=== PATIENT | male | born 1990 | race Caucasian/White ===

== ENCOUNTER 2018-06-17 07:12 | Emergency (ER) | payer MEDICAID, SELFPAY ==
[2018-06-17] VITALS (8 sets, daily range): BP systolic 139–147; BP diastolic 79–82; PULSE 72–109; RESP 4–24; TEMP 36.7; O2SAT 95–98
[2018-06-17] MEDS: Albuterol/Ipratropium 3 ML UPD VIAL UPD (07:20)
--- NOTE | 2018-06-17 07:21 | ED.GENADUL_ITS ---
Discharge Plan Disposition Patient Disposition: HOME Condition: Good Discharge Details Chief Complaint: RespSymp Clinical Impression: Asthma with acute exacerbation Primary Care Provider: Nolan Branch ED Provider: Alejandro Haney Home Meds and New Rx's Prescriptions: New albuterol sulfate [Ventolin HFA] 90 mcg/actuation Hfa Aerosol Inhaler 2 puff Inhalation Q4H PRN (Reason: Wheezing) Qty: 0 RF: 0 prednisone 20 mg tablet 40 mg PO DAILY Qty: 8 RF: 0 Discharge Instructions Instructions: Asthma (ED) Additional Instructions: Use the inhaler with spacer every 4-6 hours as needed for cough and wheezing. Prednisone every morning for the next 4 days. Follow-up with primary care next week for reevaluation. Return to ED if increasing shortness of breath, chest pain, high fevers. Referrals: Nolan Branch, [employer] [Primary Care Provider] - Medical Decision Making Given DuoNeb treatment which helped significantly. He will follow this with an albuterol. On repeat exam still has some wheezing but he is no longer is diminished. He is feeling much better in terms of breathing. Chest x-ray ordered. 60 of prednisone given orally. Plan on at least one more albuterol neb. Better after 2 treatments. Given his third and feels jittery but feels that breathing is back to baseline. Chest x-ray was obtained and is negative for infiltrate. Patient will be discharged home with albuterol MDI as well as prednisone burst. Follow-up with primary care next week. Return to the emerg ency department if he develops increasing difficulty breathing, chest pain, other concerns. HPI General Mode of arrival: ambulatory . Date/Time Provider Initiated Documentation: 06/17/18 07:19 . Limitations to Documentation: no limitations . Information obtained by: patient . HPI Narrative: Patient presents to ED with chest tightness and wheezing with difficulty breathing since last night. He does have a history of asthma. He also smokes. He has had URI symptoms for the last couple of days. He feels like he cannot take a deep breath because his chest is so tight. Does not know whether he is had fever or not. He did wake up in a sweat but has been having difficulty breathing all night. Finally came in this morning. Related Data Home Medications Medication Instructions Recorded Confirmed albuterol sulfate [Ventolin HFA] 2 puff INHALATION Q4H PRN #0 gm 06/17/18 prednisone 40 mg PO DAILY #8 tab 06/17/18 Previous Rx's Medication Instructions Recorded albuterol sulfate [Ventolin HFA] 2 puff INHALATION Q4H PRN #0 gm 06/17/18 prednisone 40 mg PO DAILY #8 tab 06/17/18 Allergies Allergy/AdvReac Type Severity Reaction Status Date / Time oak tree Allergy Mild Uncoded 06/17/18 07:43 Review of Systems Review of Systems As documented in HPI otherwise negative as below. Const: no fever, chills, weakness Resp: cough, SOB, wheeze; no pleuritic pain CV: chest tightness but no CP, diaphoresis, edema, syncope GI: no abdominal pain, nausea, vomiting, diarrhea Neuro: no headache, numbness, focal weakness, confusion PFSH Medical History Asthma (Chronic) Social History Smoking/Tobacco Use Status: Current every day Drug use: Daily Do you feel safe in your relationship?: Yes Exam Narrative Exam Narrative: Vitals: Normal Const: WDWN male in NAD. HEENT: NC/AT. Normal facial exam. Eyes: Normal conjunctiva and sclera. Neck: Supple. Trachea midline. Lungs: Mild respiratory difficulty but no retractions/accessory muscle use. Diffuse wheezing and decreased throughout. Cor: RRR without murmur/gallop. Good radial pulses. Neuro: A+O x 3. CN grossly in tact. Good strength and no focal deficit. Ext: No C/C/E. No deformity or tenderness. Skin: Warm and dry without rash.
[2018-06-17] MEDS: Albuterol 2.5 MG/3 ML INH SOLN VIAL UPD ×2 (07:25→08:10)
[2018-06-17] MEDS: predniSONE 20 MG TAB 60 MG PO (07:30)
--- NOTE | 2018-06-17 07:45 | DI.RAD_ITS ---
SYMPTOM/DIAGNOSIS: COUGH,WHEEZE PA AND LATERAL CHEST: Comparison is made with 12/12/10. The cardiac and mediastinal contours have a normal appearance. The lungs are well inflated and clear. No infiltrate, effusion or pneumothorax is seen. IMPRESSION: Negative chest xray.
--- NOTE | 2018-06-17 08:17 | DI.VRAD_ITS ---
EXAM: XR Chest, 2 Views EXAM DATE/TIME: 06/17/2018 7:46 AM CLINICAL HISTORY: 27 years old, male; Signs and symptoms; Cough and wheezing; Patient HX: Cough, wheeze TECHNIQUE: Imaging protocol: XR of the chest, 2 views. COMPARISON: No relevant prior studies available. FINDINGS: Lungs: Mild hyperinflation. No consolidative pneumonia or pulmonary edema. Pleural space: Unremarkable. No pleural effusion. No pneumothorax. Heart/Mediastinum: Unremarkable. No cardiomegaly. Bones/joints: Unremarkable. IMPRESSION: Mild hyperinflation. No acute process. Dictated and Authenticated by: Jamie Amaral MD. Ordering:KHRIS Allen MD
[2018-06-17] MEDS: Inhaler, Assist Device 1 EACH MC (08:45)
[2018-06-17] MEDS: Albuterol HFA 8 GM 60 PUFF INH IH (08:45)
== END 2018-06-17 08:51 | disposition home or self-care (01) ==
PROVIDERS: Emergency Provider Emergency Medicine; PCP Nurse Practitioner Family
DX: J45.901 Unspecified asthma with (acute) exacerbation (principal); F17.210 Nicotine dependence, cigarettes, uncomplicated
CPT/HCPCS: 94640; 99284; 71046; J7512; J7613; J7620

== ENCOUNTER 2018-06-18 18:54 | Emergency (ER) | payer MEDICAID, SELFPAY ==
[2018-06-18 19:00] VITALS: BP 134/88; PULSE 91; PULSE 96; TEMP 36.4; O2SAT 96; O2SAT 97
--- NOTE | 2018-06-18 19:10 | W.ED.GENAD ---
Discharge Plan Disposition Patient Disposition: HOME Condition: Improving Discharge Details Chief Complaint: SOB Clinical Impression: Asthma, Anxiety Primary Care Provider: Nolan Branch ED Provider: Lisa Rizo Home Meds and New Rx's Prescriptions: Continued albuterol sulfate [Ventolin HFA] 90 mcg/actuation Hfa Aerosol Inhaler 2 puff Inhalation Q4H PRN (Reason: Wheezing) Qty: 0 RF: 0 prednisone 20 mg tablet 40 mg PO DAILY Qty: 8 RF: 0 Discharge Instructions Instructions: Lorazepam (By mouth), Asthma (ED), Anxiety (ED) Additional Instructions: Encourage hydration. Use inhaler as previously prescribed. Use nasal saline, may continue with Mucinex. Ativan as prescribed to help with anxiety that can accompany your shortness of breath. If you develop increased work of breathing, inability to stay hydrated, fevers or other new/worsening symptoms please seek care urgently once again. communications coordinator will contact you with primary care information. Referrals: Nolan Branch NP [Primary Care Provider] - Medical Decision Making <RODRIGO Weir - Last Filed: 06/18/18 21:56> Patient is a 27-year-old male presenting chief complaint shortness of breath. He simply yesterday diagnosed with asthma exacerbation in the setting of URI. He reports that he had been doing better earlier today but that during a coughing fit this afternoon, he was unable to clear my chest. States that he laid on his stomach to try and slow his breathing. States that he was notably tachypneic. Reports that while laying down on the floor, quickly breathing, he suffered a syncopal event. Prior to this, he noted his face, hands and feet to be numb. Denies any chest pain. Reports that he continues to be short of breath. Has been using his inhaler as prescribed. Has been taking the prednisone as prescribed last night. Patient is noted to have diffuse expiratory wheezes on exam. Will give DuoNeb and reassess. Does appear quite anxious and tachypneic. Patient's oxygen is 97% Patient is much improved after 1 duoneb and 2 albuterol. Continues to need coaching to slow down his breathing. When at rest, he is breathing normally and evenly. However, he quickly becomes tachypnic with discussion and refocusing on his breathing. O2 remains in high 90s. Lungs clear to auscultation. Will obtain EKG with reported syncopal episode although this is likely associated with hyperventilation. EKG reviewed by Dr. Silva with no acute abnormality noted, NSR rate 84. Patient is feeling much improved but still appears anxious. Discussed case with Dr. Silva who advised benzo. Patient given 0.5mg Ativan orally. This helped patient be able to slow his breathing. He reports feeling opened up andappear much more calm. Plan to d/c home with previous plan in place. Will give one more 0.5mg ativan to be used PRN. Advised on safe usage and advised he keep this out of reach of children. Encouraged hydration. His symptoms do sound concerning for PND, advised on home remedies and OTC medications that may help with this and hopefully cut back on coughing. Discussed new/worsening symptoms and when to seek care urgently once again. He does not have a PCP, have asked health care facilities inspector to help arrange for this. I am hoping he will have f/u as soon as possible, he greatly benefited from PRN nebulizer. Ask that PCP help to arrange for home use. All ofhis questions and concerns were addressed, he is in agreement with this plan. <Mendoza Silva MD - Last Filed: 06/18/18 21:19> ECG Data Attestation: I personally reviewed and interpreted this ECG (s) as follows: Prior ECG tracings: available for review Interpretation: sinus rhythm, rate of 84, pr 120, no acute st t wave ischemic changes HPI <RODRIGO Weir - Last Filed: 06/18/18 21:56> General Mode of arrival: ambulatory. Date/Time Provider Initiated Documentation: 06/18/18 19:01. Limitations to Documentation: no limitations. Information obtained by: patient, family and RN notes reviewed. History of Present Illness 27 year old M presents to the emergency department with the chief complaint of SOB, described as moderate, Patient started experiencing this hour(s) and it has been constant. No relieving factors improve symptom(s), No exacerbating factors reported . Patient notes cough, fever/chills, shortness of breath and syncope; denies chest pain, diaphoresis, headaches, loss of appetite, nausea/vomiting, rash and weakness. Patient did receive the following treatments prior to arrival, other (inhaler) Related Data Home Medications Medication Instructions Recorded Confirmed albuterol sulfate [Ventolin HFA] 2 puff INHALATION Q4H PRN #0 gm 06/17/18 06/18/18 prednisone 40 mg PO DAILY #8 tab 06/17/18 06/18/18 Previous Rx's Medication Instructions Recorded albuterol sulfate [Ventolin HFA] 2 puff INHALATION Q4H PRN #0 gm 06/17/18 prednisone 40 mg PO DAILY #8 tab 06/17/18 Allergies Allergy/AdvReac Type Severity Reaction Status Date / Time feathers Allergy Unverified 06/18/18 19:04 oak tree Allergy Mild Uncoded 06/18/18 19:04 General Stated Complaint: SOB ALFIE: 3 Review of Systems <RODRIGO Weir Last Filed: 06/18/18 21:56> Constitutional Reports as per HPI and Denies headache(s) Eyes Reports as per HPI, Denies eye discharge and Denies irritation ENT Reports as per HPI and Denies headache(s) Cardiovascular Reports as per HPI, Denies chest pain and Denies dyspnea Respiratory Reports as per HPI and Denies dyspnea Gastrointestinal Reports as per HPI, Denies abdominal pain, Denies change in bowel habits, Denies nausea and Denies vomiting Integumentary/Breasts Reports as per HPI and Denies rash Neurologic Reports as per HPI and Denies headache(s) PFSH <RODRIGO Weir - Last Filed: 06/18/18 21:56> Social History Smoking/Tobacco Use Status: Current every day Tobacco Type: cigarettes Years smoked: 10 Drug use: Daily Substance use type: marijuana Do you feel safe at home: Yes Do you feel safe in your relationship?: Yes Exam <RODRIGO Weir - Last Filed: 06/18/18 21:56> Const General: cooperative, healthy appearing, comfortable, no acute distress, well developed and well groomed Nutritional Appearance: average body habitus and well nourished Orientation: alert and awake [facility] Head: normal to inspection, normocephalic and atraumatic Ears: hearing grossly normal bilaterally, external ears normal and TM's normal bilaterally General nose exam: external nose normal and nares normal Face and sinus: normal facial exam, sinuses nontender and face symmetric Mouth: oral mucosae normal, lip normal, tongue normal, oropharynx normal and moist mucous membranes Teeth and gingiva: dentition normal Throat: posterior oropharynx normal, tonsils normal and uvula midline Eyes General: appearance normal, both eyes and all related structures Neck Neck: normal visual inspection, full ROM, no lymphadenopathy and no meningeal signs Resp Effort & Inspection: normal respiratory effort, able to speak in complete sentences and no respiratory distress Auscultation: clear to auscultation bilaterally, no rales, no rhonchi and no wheezes Cardio Rate: regular rate Rhythm: regular rhythm Heart Sounds: S1 normal and S2 normal Skin General skin exam: no rashes or lesions noted Neuro General: alert and awake Cognition: normal cognition Speech: speech normal Gait: normal gait Psych Appearance: grossly normal and well kempt Mental Status: mental status grossly normal Speech and Movement: speech and movement normal Course <RODRIGO Weir - Last Filed: 06/18/18 21:56> Vital Signs Temperature 36.4 C L 06/18/18 19:00 Pulse 96 H 06/18/18 19:00 Pulse Oximetry 97 06/18/18 19:00 Temperature 36.4 C L 06/18/18 19:00 Temperature Source Skin 06/18/18 19:00 Pulse 96 H 06/18/18 19:00 Blood Pressure Position Sitting 06/18/18 19:00 Pulse Oximetry 97 06/18/18 19:00 Oxygen Delivery Method Room Air 06/18/18 19:00 Oxygen Flow Rate 0 06/18/18 19:00
[2018-06-18] MEDS: Albuterol/Ipratropium 3 ML UPD VIAL (19:12)
--- NOTE | 2018-06-18 19:13 | ED.GENADUL_ITS ---
Discharge Plan Disposition Patient Disposition: HOME Condition: Improving Discharge Details Chief Complaint: SOB Clinical Impression: Asthma, Anxiety Primary Care Provider: Nolan Branch ED Provider: Lisa Rizo Home Meds and New Rx's Prescriptions: Continued albuterol sulfate [Ventolin HFA] 90 mcg/actuation Hfa Aerosol Inhaler 2 puff Inhalation Q4H PRN (Reason: Wheezing) Qty: 0 RF: 0 prednisone 20 mg tablet 40 mg PO DAILY Qty: 8 RF: 0 Discharge Instructions Instructions: Lorazepam (By mouth), Asthma (ED), Anxiety (ED) Additional Instructions: Encourage hydration. Use inhaler as previously prescribed. Use nasal saline, may continue with Mucinex. Ativan as prescribed to help with anxiety that can accompany your shortness of breath. If you develop increased work of breathing, inability to stay hydrated, fevers or other new/worsening symptoms please seek care urgently once again. e learning coordinator will contact you with primary care information. Referrals: Nolan Branch NP [Primary Care Provider] - Medical Decision Making <RODRIGO Weir - Last Filed: 06/18/18 21:56> Patient is a 27-year-old male presenting chief complaint shortness of breath. He simply yesterday diagnosed with asthma exacerbation in the setting of URI. He reports that he had been doing better earlier today but that during a coughing fit this afternoon, he was unable to clear my chest. States that he laid on his stomach to try and slow his breathing. States that he was notably tachypneic. Reports that while laying down on the floor, quickly breathing, he suffered a syncopal event. Prior to this, he noted his face, hands and feet to be numb. Denies any chest pain. Reports that he continues to be short of breath. Has been using his inhaler as prescribed. Has been taking the prednisone as prescribed last night. Patient is noted to have diffuse expiratory wheezes on exam. Will give DuoNeb and reassess. Does appear quite anxious and tachypneic. Patient's oxygen is 97% Patient is much improved after 1 duoneb and 2 albuterol. Continues to need coaching to slow down his breathing. When at rest, he is breathing normally and evenly. However, he quickly becomes tachypnic with discussion and refocusing on his breathing. O2 remains in high 90s. Lungs clear to auscultation. Will obtain EKG with reported syncopal episode although this is likely associated with hyperventilation. EKG reviewed by Dr. Silva with no acute abnormality noted, NSR rate 84. Patient is feeling much improved but still appears anxious. Discussed case with Dr. Silva who advised benzo. Patient given 0.5mg Ativan orally. This helped patient be able to slow his breathing. He reports feeling opened up andappear much more calm. Plan to d/c home with previous plan in place. Will give one more 0.5mg ativan to be used PRN. Advised on safe usage and advised he keep this out of reach of children. Encouraged hydration. His symptoms do sound concerning for PND, advised on home remedies and OTC medications that may help with this and hopefully cut back on coughing. Discussed new/worsening symptoms and when to seek care urgently once again. He does not have a PCP, have asked hospice care consultant to help arrange for this. I am hoping he will have f/u as soon as possible, he greatly benefited from PRN nebulizer. Ask that PCP help to arrange for home use. All ofhis questions and concerns were addressed, he is in agreement with this plan. <Mendoza Silva MD - Last Filed: 06/18/18 21:19> ECG Data Attestation: I personally reviewed and interpreted this ECG (s) as follows: Prior ECG tracings: available for review Interpretation: sinus rhythm, rate of 84, pr 120, no acute st t wave ischemic changes HPI <RODRIGO Weir - Last Filed: 06/18/18 21:56> General Mode of arrival: ambulatory . Date/Time Provider Initiated Documentation: 06/18/18 19:01 . Limitations to Documentation: no limitations . Information obtained by: patient, family and RN notes reviewed . History of Present Illness 27 year old M presents to the emergency department with the chief complaint of SOB, described as moderate, Patient started experiencing this hour(s) and it has been constant. No relieving factors improve symptom(s), No exacerbating factors reported . Patient notes cough, fe kenya/chills, shortness of breath and syncope; denies chest pain, diaphoresis, headaches, loss of appetite, nausea/vomiting, rash and weakness. Patient did receive the following treatments prior to arrival, other (inhaler) Related Data Home Medications Medication Instructions Recorded Confirmed albuterol sulfate [Ventolin HFA] 2 puff INHALATION Q4H PRN #0 gm 06/17/18 06/18/18 prednisone 40 mg PO DAILY #8 tab 06/17/18 06/18/18 Previous Rx's Medication Instructions Recorded albuterol sulfate [Ventolin HFA] 2 puff INHALATION Q4H PRN #0 gm 06/17/18 prednisone 40 mg PO DAILY #8 tab 06/17/18 Allergies Allergy/AdvReac Type Severity Reaction Status Date / Time feathers Allergy Unverified 06/18/18 19:04 oak tree Allergy Mild Uncoded 06/18/18 19:04 General Stated Complaint: SOB ALFIE: 3 Review of Systems <RODRIGO Weir Last Filed: 06/18/18 21:56> Constitutional Reports as per HPI and Denies headache(s) Eyes Reports as per HPI, Denies eye discharge and Denies irritation ENT Reports as per HPI and Denies headache(s) Cardiovascular Reports as per HPI, Denies chest pain and Denies dyspnea Respiratory Reports as per HPI and Denies dyspnea Gastrointestinal Reports as per HPI, Denies abdominal pain, Denies change in bowel habits, Denies nausea and Denies vomiting Integumentary/Breasts Reports as per HPI and Denies rash Neurologic Reports as per HPI and Denies headache(s) PFSH <RODRIGO Weir Last Filed: 06/18/18 21:56> Social History Smoking/Tobacco Use Status: Current every day Tobacco Type: cigarettes Years smoked: 10 Drug use: Daily Substance use type: marijuana Do you feel safe at home: Yes Do you feel safe in your relationship?: Yes Exam <RODRIGO Weir Last Filed: 06/18/18 21:56> Const General: cooperative, healthy appearing, comfortable, no acute distress, well developed and well groomed Nutritional Appearance: average body habitus and well nourished Orientation: alert and awake [facility] Head: normal to inspection, normocephalic and atraumatic Ears: hearing grossly normal bilaterally, external ears normal and TM's normal bilaterally General nose exam: external nose normal and nares normal Face and sinus: normal facial exam, sinuses nontender and face symmetric Mouth: oral mucosae normal, lip normal, tongue normal, oropharynx normal and moist mucous membranes Teeth and gingiva: dentition normal Throat: posterior oropharynx normal, tonsils normal and uvula midline Eyes General: appearance normal, both eyes and all related structures Neck Neck: normal visual inspection, full ROM, no lymphadenopathy and no meningeal signs Resp Effort & Inspection: normal respiratory effort, able to speak in complete sentences and no respiratory distress Auscultation: clear to auscultation bilaterally, no rales, no rhonchi and no wheezes Cardio Rate: regular rate Rhythm: regular rhythm Heart Sounds: S1 normal and S2 normal Skin General skin exam: no rashes or lesions noted Neuro General: alert and awake Cognition: normal cognition Speech: speech normal Gait: normal gait Psych Appearance: grossly normal and well kempt Mental Status: mental status grossly normal Speech and Movement: speech and movement normal Course <RODRIGO Weir - Last Filed: 06/18/18 21:56> Vital Signs Temperature 36.4 C L 06/18/18 19:00 Pulse 96 H 06/18/18 19:00 Pulse Oximetry 97 06/18/18 19:00 Temperature 36.4 C L 06/18/18 19:00 Temperature Source Skin 06/18/18 19:00 Pulse 96 H 06/18/18 19:00 Blood Pressure Position Sitting 06/18/18 19:00 Pulse Oximetry 97 06/18/18 19:00 Oxygen Delivery Method Room Air 06/18/18 19:00 Oxygen Flow Rate 0 06/18/18 19:00
[2018-06-18 19:28] VITALS: PULSE 84; O2SAT 95
[2018-06-18 19:45] VITALS: BP 117/67; PULSE 94; O2SAT 92
[2018-06-18] MEDS: Albuterol 2.5 MG/3 ML INH SOLN VIAL UPD ×2 (20:12→20:33)
[2018-06-18 20:30] VITALS: BP 124/89; PULSE 105; O2SAT 96
[2018-06-18] MEDS: LORazepam 0.5 MG TAB PO ×2 (21:20→22:03)
[2018-06-18 22:02] VITALS: BP 121/80; PULSE 86; RESP 22; TEMP 36.6; O2SAT 96
== END 2018-06-18 20:01 | disposition home or self-care (01) ==
PROVIDERS: Emergency Provider Physician Assistant; PCP Nurse Practitioner Family
DX: J45.909 Unspecified asthma, uncomplicated (principal); F41.9 Anxiety disorder, unspecified; R06.82 Tachypnea, not elsewhere classified; R55 Syncope and collapse; F17.210 Nicotine dependence, cigarettes, uncomplicated
CPT/HCPCS: 93005; 94640; 99284; 93010; J7613; J7620

== ENCOUNTER 2018-06-22 10:07 | Emergency (ER) | payer MEDICAID, SELFPAY ==
[2018-06-22 10:11] VITALS: BP 126/83; PULSE 52; RESP 20; TEMP 37; O2SAT 98
--- NOTE | 2018-06-22 10:20 | W.ED.GENAD ---
Discharge Plan Disposition Patient Disposition: HOME Condition: Stable Discharge Details Chief Complaint: Chest/Rib Clinical Impression: Left-sided chest pain, Chest pain, musculoskeletal Primary Care Provider: Nolan Branch ED Provider: Mendoza Silva Home Meds and New Rx's Prescriptions: New diazepam [Valium] 5 mg tablet 5 mg PO BID-QID PRN (Reason: muscle spasm) Qty: 20 RF: 0 azithromycin 250 mg tablet See Rx Instructions .ROUTE .COMPLEX Qty: 6 RF: 0 No Action albuterol sulfate [Ventolin HFA] 90 mcg/actuation Hfa Aerosol Inhaler 2 puff Inhalation Q4H PRN (Reason: Wheezing) Qty: 0 RF: 0 prednisone 20 mg tablet 40 mg PO DAILY Qty: 8 RF: 0 Discharge Instructions Additional Instructions: Your blood work, ekg, and cat scan of your chest did not show any emergent concerning findings. You did have ground glass opacities in your lower lungs which could be from smoking but we are treating as a possible infection with azithromycin follow up with your primary care provider. you should have repeat imaging in about 3 months to see if this finding on the cat scan is still present you can take 1000mg tylenol and 600mg ibuprofen every 6 hours for pain as needed Do not drink alcohol or operate heavy machinery if you take this medicine if you feel you are worsening or have new symptoms such as severe abdominal pain return to the emergency department Medical Decision Making 27 yo male with hx of asthma comes in with left sided chest pain. He was tx'd for uri/asthma exacerbation and finished prednisone yesterday. He states last night he coughed and felt a pop in the left sided of his chest. Denies shortness of breath and states he feels better in regards to his breathing. He has pain with palpation to the left chest in the mid axillary line over the 4-6th ribs with no palpable deformities. Has clear lungs so unlikely ptx, will xray to eval for this and also rib fx's pt's xray is negative. He is still in a lot of pain on the left side and is very worried that a rib is broken. I suspect this is unlikely, after going over the risks and benefits of a CT he would like to have this. Given he is willing to have the radiation will obtain CTA to also rule out PE. CTA negative per Dr. Pérez other than bilateral ground glass opacity, will tx for possible mycoplasma but advised need to f/u with pcp and should have repeat imaging in 3 months to see if there is any improvement Differential Diagnosis contusion, fx, ptx Imaging Data Radiologic Study: Attestation: I personally reviewed and interpreted this imaging study as follows: Imaging: X-Ray and CT Scan Radiologist's impression: no acute findings Radiologic Study #2: Attestation: I personally reviewed and interpreted this imaging study as follows: Imaging: CT Scan Radiologist's impression: ground glass opacities bilaterally otherwise unremarkable CTA Lab Data Lab results reviewed: Yes I reviewed the patient's lab results. ECG Data Attestation: I personally reviewed and interpreted this ECG (s) as follows: Prior ECG tracings: not available for review Interpretation: normal sinus rhythm, normal rate, normal axis, no acute st t wave ischemic findings HPI General Mode of arrival: ambulatory. Date/Time Provider Initiated Documentation: 06/22/18 10:07. Limitations to Documentation: no limitations. History of Present Illness 27 year old M presents to the emergency department with the chief complaint of left sided chest pain, described as severe, Quality is described as aching and sharp, and is localized to the chest and left. Patient reports no radiation. Patient started experiencing this day(s) (1) and it has been constant. No relieving factors improve symptom(s), No exacerbating factors reported . Patient notes cough. Related Data Home Medications Medication Instructions Recorded Confirmed albuterol sulfate [Ventolin HFA] 2 puff INHALATION Q4H PRN #0 gm 06/17/18 06/22/18 prednisone 40 mg PO DAILY #8 tab 06/17/18 06/22/18 azithromycin See Rx Instructions .ROUTE 06/22/18 .COMPLEX #6 tab diazepam [Valium] 5 mg PO BID-QID PRN #20 tab 06/22/18 Previous Rx's Medication Instructions Recorded albuterol sulfate [Ventolin HFA] 2 puff INHALATION Q4H PRN #0 gm 06/17/18 prednisone 40 mg PO DAILY #8 tab 06/17/18 azithromycin See Rx Instructions .ROUTE 06/22/18 .COMPLEX #6 tab diazepam [Valium] 5 mg PO BID-QID PRN #20 tab 06/22/18 Allergies Allergy/AdvReac Type Severity Reaction Status Date / Time feathers Allergy Unverified 06/22/18 10:15 oak tree Allergy Mild Uncoded 06/22/18 10:15 General Stated Complaint: Chest/Rib ALFIE: 3 Review of Systems Review of Systems All systems reviewed & are unremarkable except as noted in HPI and below Constitutional Denies chills, Denies fever(s) and Denies weakness Cardiovascular Denies dyspnea Respiratory Denies dyspnea Gastrointestinal Denies abdominal pain, Denies nausea and Denies vomiting Integumentary/Breasts Denies rash Neurologic Denies weakness [facility] Medical History Asthma (Chronic) Social History Smoking/Tobacco Use Status: Current every day Tobacco Type: cigarettes Drug use: Daily Substance use type: marijuana Do you feel safe at home: Yes Do you feel safe in your relationship?: Yes Exam Const General: no acute distress Orientation: alert HENMT Head: normal to inspection Ears: external ears normal General nose exam: external nose normal Mouth: moist mucous membranes Eyes General: appearance normal, both eyes and all related structures Neck Neck: normal visual inspection Chest Chest: no crepitus Resp Effort & Inspection: normal respiratory effort and able to speak in complete sentences Cardio Rate: regular rate Skin General skin exam: no rashes or lesions noted Neuro General: alert and oriented x3 Extrem General: normal to inspection Psych Mental Status: mental status grossly normal Course Vital Signs Temperature 37.0 C 06/22/18 10:11 Pulse 52 L 06/22/18 10:11 Respiratory Rate 06/22/18 10:11 Blood Pressure 126/83 06/22/18 10:11 Pulse Oximetry 98 06/22/18 10:11 Temperature 37.0 C 06/22/18 10:11 Temperature Source Tympanic 06/22/18 10:11 Pulse 52 L 06/22/18 10:11 Respiratory Rate 06/22/18 10:11 Respiratory Effort Non-Labored 06/22/18 10:16 Respiratory Depth Shallow 06/22/18 10:16 Respiratory Pattern Normal 06/22/18 10:16 Blood Pressure 126/83 06/22/18 10:11 Blood Pressure Position Sitting 06/22/18 10:11 Pulse Oximetry 98 06/22/18 10:11 Oxygen Delivery Method Room Air 06/22/18 10:11 Oxygen Flow Rate 0 06/22/18 10:11 Pain Level 10 06/22/18 10:16
--- NOTE | 2018-06-22 10:37 | DI.RAD_ITS ---
SYMPTOM/DIAGNOSIS: LT SIDED CHEST PAIN, COUGH PA AND LATERAL CHEST: Comparison is made with 06/17/18. The heart is normal in size. The lungs are clear. The mediastinal structures and pleura appear intact. CONCLUSION: Normal chest.
--- NOTE | 2018-06-22 11:01 | DI.CT_ITS ---
SYMPTOMS/DIAGNOSIS: LT SIDED CHEST PAIN CTA OF THE CHEST: CT angiography was performed with multi slice acquisition and multi planar and 3D reconstruction. CTA of the chest was performed according to the pulmonary embolus protocol. There is no evidence of a pulmonary embolus. The thoracic aorta is intact. No evidence of aneurysm or dissection. The heart size is within normal limits. No evidence of right ventricular dysfunction is seen. No significant pericardial effusion is seen. No significant thoracic adenopathy, pleural effusion or pneumothorax is identified. There are ground glass opacities seen in the lungs predominantly centrally, most marked in the upper lobes but also involving the lingula, middle lobe and left lower lobe. The tracheobronchial tree is unremarkable. No acute osseous abnormality is identified. IMPRESSION: 1. No evidence of a pulmonary embolus, thoracic aortic dissection or aneurysm. 2. Bilateral ground glass opacities. This may represent small airway disease. Interstitial or infectious process should be considered. The findings were discussed with Dr. Silva of the emergency department on the date of the examination.
[2018-06-22 11:26] LABS: Abs Immature Grans 0.03 k/cumm (0.0-0.09); Absolute Basophil Count 0.02 k/cumm (0.0-0.2); Absolute Eosinophil Count 0.53 k/cumm (0.0-0.7); Absolute Lymphocyte Count 3.88 k/cumm (1.2-3.4); Absolute Monocyte Count 0.82 k/cumm (0.11-0.7); Absolute Neutrophil Count 4.25 k/cumm (1.2-6.7); Basophils % 0.2; Eosinophils % 5.6; HCT 38.8 % (40.0-50.0); HGB 13.7 g/dL (13.5-17.5); Immature Grans % 0.3; Lymphocytes % 40.7; Mean Corp. HGB Concentration 35.3 g/dL (32.0-36.0); Mean Corpuscular Hemoglobin 32.3 pg (27.0-33.0); Mean Corpuscular Volume 91.5 fL (80-95); Mean Platelet Volume 10.3 fL (8.0-11.0); Monocytes % 8.6; Neutrophils % 44.6; Platelet Count 295 x1000/uL (130-400); RBC 4.24 m/cumm (4.50-6.00); RBC Distribution Width 12.3 % (11.8-14.1); White Blood Cell Count 9.53 k/cumm (4.4-10.8)
[2018-06-22] MEDS: Ketorolac 15 MG/ML VIAL IVP (11:29)
[2018-06-22] MEDS: Normal Saline 1,000 ML 1000 ML IV (11:30)
[2018-06-22 11:37] LABS: PTT Activated 25.3 sec (21.0-31.4); Prothrombin Time 9.7 sec (9.3-11.0)
[2018-06-22 11:45] LABS: ALT 40 U/L (12-78); AST 22 U/L (15-37); Albumin 3.6 g/dL (3.4-5.0); Alkaline Phosphatase 63 U/L (46-116); Anion Gap 12.8 mmol/L (3-11); BUN 22 mg/dL (7-18); Bilirubin, Total 1.3 mg/dL (0.2-1.0); CO2 23.2 mmol/L (21.0-32.0); CREATININE 0.95 mg/dL (0.70-1.30); Chloride 102 mmol/L (98-107); Glucose 99 mg/dL (70-100); Potassium 3.4 mmol/L (3.5-5.1); Sodium 138 mmol/L (136-145); Total Protein 8.1 g/dL (6.4-8.2)
[2018-06-22] MEDS: Omnipaque 350 MG/ML 100 ML BTL IJ (11:45)
[2018-06-22 11:47] LABS: Troponin I < 0.02 ng/mL (0.00-0.06)
--- NOTE | 2018-06-22 12:00 | RESPIRATORY ---
06/22/18-Discussed with Pt his hx of allergies and childhood asthma. Dr. mattson put in a PFT referral order. Pt has been scheduled for 07/06/18 [place] [id number] and is aware.
== END 2018-06-22 12:19 | disposition home or self-care (01) ==
PROVIDERS: Emergency Provider Emergency Medicine; PCP Nurse Practitioner Family
DX: R07.81 Pleurodynia (principal); J45.909 Unspecified asthma, uncomplicated; R91.8 Other nonspecific abnormal finding of lung field; F17.210 Nicotine dependence, cigarettes, uncomplicated
CPT/HCPCS: 36415; 71275; 80053; 93005; 96361; 96374; 99285; 71046; 83735; 84484; 85025; 85610; 85730; 93010; J1885; J3490

== ENCOUNTER 2018-07-06 02:27 | Outpatient (CLI) | payer MEDICAID, SELFPAY ==
--- NOTE | 2018-07-06 09:22 | PFT_ITS ---
PULMONARY FUNCTION TEST REPORT DATE OF SERVICE: July 06, 2018 REQUESTING PROVIDER: Nolan Branch DNP, BRETT Spirometry shows mild obstructive airways disease with significant bronchodilator response. Lung volumes no evidence of restriction. Diffusion capacity somewhat elevated. Airways resistance normal. IMPRESSION: Mild obstructive airways disease with significant bronchodilator response. This is associated with slightly elevated diffusion capacity. This constellation of findings can be seen in asthma, therefore clinical correlation recommended. José Miguel
[2018-07-06] MEDS: Inhaler, Assist Device 1 EACH MC (09:29)
[2018-07-06] MEDS: Albuterol HFA 18 GM 200 PUFF INH IH (09:29)
== END 2018-07-06 02:47 ==
PROVIDERS: PCP Nurse Practitioner Family; Visit Provider Nurse Practitioner Family
DX: R05 Cough (principal); R06.09 Other forms of dyspnea; Z87.09 Personal history of other diseases of the respiratory system
CPT/HCPCS: 94060; 94150; 94726; 94729